=== PATIENT | male | born 2000 | race Caucasian/White ===

== ENCOUNTER 2025-05-01 16:23 | Emergency (ER) | payer SELFPAY ==
[~2025-05-01] VITALS: Ht 198.1 cm; Wt 81.8 kg
[2025-05-01 16:24] VITALS: BP 136/82; PULSE 98; RESP 16; TEMP 98.6; O2SAT 99
[2025-05-01 16:45] LABS: MEAN PLATELET VOLUME 7.4 FL (7.4-10.4); RED CELL DISTRIBUTION WIDTH 15.4 % (11.5-14.5)
[2025-05-01 16:59] LABS: CREATININE 0.71 MG/DL (0.60-1.10); TOTAL CARBON DIOXIDE 24.3 MMOL/L (24-32); eCRCL 189 ML/MIN; eGFR > 90 ML/MIN
== END 2025-05-01 19:42 | disposition left against medical advice (07) ==
LOC: ER 16:24
DX: F10.129 Alcohol abuse with intoxication, unspecified (principal); R10.9 Unspecified abdominal pain; R11.10 Vomiting, unspecified; Z53.21 Procedure and treatment not carried out due to patient leaving prior to being seen by health care provider; Y90.9 Presence of alcohol in blood, level not specified
CPT/HCPCS: 36415; 80053; 83690; 85025; 99281

== ENCOUNTER 2025-05-17 11:17 | Emergency (ER) | payer OTHER | END 2025-05-17 12:03 | disposition left against medical advice (07) | LOC: ER 11:18 | DX: R11.10 Vomiting, unspecified (principal); R31.9 Hematuria, unspecified; Z53.21 Procedure and treatment not carried out due to patient leaving prior to being seen by health care provider ==